=== PATIENT | female | born 2000 | race African-American/Black ===

== ENCOUNTER 2023-10-18 14:24 | Outpatient (CLI) | payer OTHER, SELFPAY ==
[2023-10-18 15:30] LABS: Influenza A QL RT-PCR Positive (Negative); Influenza B QL RT-PCR Negative (Negative); RSV RNA, RT-PCR Negative (Negative); SARS-CoV-2 RNA PCR Negative (Negative)
== END 2023-10-18 14:25 | disposition home or self-care (01) ==
LOC: ANHLAB 14:25
PROVIDERS: PCP Nurse Practitioner Family; Visit Provider Nurse Practitioner Family
DX: Z20.822 Contact with and (suspected) exposure to COVID-19 (principal)
CPT/HCPCS: 87637

== ENCOUNTER 2024-01-17 19:36 | Emergency (ER) | payer OTHER, SELFPAY ==
--- NOTE | ~2024-01-17 | XR_ITS ---
EXAMINATION: XR chest 2V Exam Date/Time: 01/17/2024 21:02 CDT HISTORY: shortness of breath and chest painx 1 day Comparison: None. RESULT: Lines, tubes, and devices: None. Lungs and pleura: Clear. Cardiomediastinal silhouette: Normal. Other: No acute osseous or upper abdominal finding. IMPRESSION: No acute cardiopulmonary process. Reviewed, dictated and finalized at location [facility].
--- NOTE | 2024-01-17 19:53 | ED.SOB ---
HPI - SOB/Dyspnea General Chief Complaint: Shortness of Breath/Dyspnea Stated Complaint: SOB Time Seen by Provider: 01/17/24 19:52 History of Present Illness HPI Narrative: Patient is a 23 year old female with no PMH here with chest pain and shortness of breath. She notes yesterday she began having some chest pain in her upper back. Pain seemed to get worse with deep breaths. She noted associated shortness of breath last night, took a dose of 800 mg ibuprofen and it seemed to resolve. Around 4 am she woke up and felt the pain again, took another dose of ibuprofen around 9 am but the pain persisted. She went in to an urgent care today who referred her into the ER for further testing. They did perform rapid COVID and strep testing at urgent care which were normal. 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 No prior history of PE, no OCP use, non smoker. She did take a car ride 3+ hours away this weekend. Denies calf pain or swelling. Related Data Home Medications Medication Instructions Recorded Confirmed No Home Medications 07/26/23 10/18/23 Allergies Allergy/AdvReac Type Severity Reaction Status Date / Time No Known Allergies Allergy Verified 07/26/23 09:04 Review of Systems Review of Systems: All systems reviewed & are unremarkable except as noted in HPI and below PMFSH Past Medical History Medical History (Updated 01/18/24 @ 00:00 by Jf Dastacia) Blood glucose elevated Fatigue Impacted cerumen of right ear Family History Family History (Updated 07/26/23 @ 09:09 by Christin Chong CMA) Father Hypertension Alcoholism Mother Hypertension Scleroderma Heart problem Grandparent Uterine cancer Social History Social History (Updated 07/26/23 @ 09:17 by Christin Chong CMA) Smoking status: Never smoker Second hand tobacco smoke exposure: No Alcohol intake: current Alcohol use details: wine 3 glasses per month Substance use: never Substance use type: does not use Living arrangements: with family Occupation/Education: student 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 HEAD: Normocephalic, atraumatic. EYES: PERRLA and EOMI. ENT: Nares clear. Mucous membranes moist. NECK: Supple. CHEST: Clear to auscultation. No respiratory distress. HEART: Tachycardic. Normal peripheral pulses. ABDOMEN: Soft, nontender, nondistended. EXTREMITIES: Normal range of motion. No edema. No calf tenderness SKIN: Warm, dry, no rash. NEURO: No focal deficits. Alert and oriented x3. PSYCH: Normal mood and affect. Course Course Emergency Course: Chart review performed. Patient here with shortness of breath. Last visit in our system on 10/18/23 for URI, was diagnosed with influenza at that time. Patient seen evaluated, nontoxic appearing and in no respiratory distress. She does appear to be febrile at 100.5F on arrival here. Tylenol ordered. Differentials include viral illness, pneumonia, given her recent travel and tachycardia with pleuritic chest pain unable to a rule out PE with PERC criteria, will do screening lab work including a screening D-dimer. Patient tolerating p.o. fluids, she can continue to use p.o. fluids here in the department. Lab work reviewed. No leukocytosis, UA negative for UTI, Troponin and BNP normal. Electrolytes normal. COVID, influenza, RSV negative. D-dimer negative. The results of pertinent diagnostic studies and exam findings were discussed. The patient?s provisional diagnosis and plan of care were discussed with the patient and present family. The patient and/or present family expressed understanding of the diagnosis and plan. The nurse was instructed to provide written instructions and appropriate follow-up information. The p
[2024-01-17 20:11] VITALS: BP 124/86; PULSE 100; RESP 16; TEMP 38.1; O2SAT 100
--- NOTE | 2024-01-17 20:15 | ECG_ITS ---
Test Date: 2024-01-17 20:21:35 Measurements Intervals [place] Rate: 93 P: 39 LA: 157 QRS: 34 QRSD: 80 T: 27 QT: 311 QTc: 387 Interpretive Statements SINUS RHYTHM EARLY PRECORDIAL R/S TRANSITION MINIMAL Q WAVES- HIGH LATERAL LEADS NONSPECIFIC T-WAVE ABNORMALITY- ANT/INF LEADS BASELINE ARTIFACT- I, II, III BORDERLINE ECG No previous ECG available for comparison Electronically Signed On 01-18-2024 06:25:48 CDT by Olu Garay D.O.
[2024-01-17 20:18] VITALS: PULSE 98
[2024-01-17 20:19] VITALS: O2SAT 100
[2024-01-17] MEDS: ACETAMINOPHEN 500 MG TABLET 1000 MG PO (20:22)
[2024-01-17 20:58] LABS: Influenza A QL RT-PCR Negative (Negative); Influenza B QL RT-PCR Negative (Negative); RSV RNA, RT-PCR Negative (Negative); SARS-CoV-2 RNA PCR Negative (Negative)
[2024-01-17 21:03] LABS: Basophils Percent Auto 0.3 % (0.2-1.2); Eosinophils Percent Auto 0.8 % (0-4.4); Hemoglobin 11.7 g/dL (12.0-15.0); Immature Granulocyte Absolute 0.01 K/mm3 (0.00-0.031); Immature Granulocyte Percent A 0.3 % (0-0.5); Lymphocytes Absolute Auto 1.11 K/mm3 (0.9-3.2); Lymphocytes Percent Auto 30.1 % (18.3-44.2); Mean Corpuscular HGB Conc 33.4 g/dl (32-36); Mean Corpuscular Hemoglobin 30.9 pg (26-34); Mean Corpuscular Volume 92.3 fl (80-100); Mean Platelet Volume 9.7 fl (7.4-10.4); Monocytes Absolute Auto 0.3 K/mm3 (0.1-0.6); Monocytes Percent Auto 9.2 % (2.6-8.5); Neutrophils Absolute Auto 2.2 K/mm3 (1.3-6.7); Neutrophils Percent Auto 59.3 % (45.5-73.1); Platelet Count Result 166 k/mm3 (150-375); Red Blood Count 3.79 M/mm3 (4.2-5.4); Red Cell Distribution Width 12.3 % (11.5-14.5); White Blood Count 3.7 K/mm3 (4.5-10.0)
[2024-01-17 21:04] LABS: Appearance Urine Clear (Clear); Bilirubin Urine Negative (Negative); Blood Urine Negative (Negative); Color Urine Yellow (Yellow); Glucose Urine UA Negative (Negative); Ketones Urine Negative (Negative); Leukocyte Esterase Ur Negative LEU/UL (Negative); Nitrate Urine Negative (Negative); Protein Urine Negative (Negative); Specific Grav Ur 1.013 (1.001-1.035); pH Urine 7.5 (5.0-9.0)
[2024-01-17 21:14] LABS: Alanine Aminotransferase 12 U/L (6-35); Albumin Level 4.4 g/dL (3.5-5.1); Alkaline Phosphatase 84 U/L (38-126); Anion Gap 7 mmol/L (4-12); Aspartate Amino Transferase 16 U/L (14-36); Bilirubin,Total 0.3 mg/dL (0.2-1.3); Blood Urea Nitrogen 9 mg/dL (7-17); Calcium 8.6 mg/dL (8.4-10.2); Carbon Dioxide 26 mmol/L (22-30); Chloride 105 mmol/L (98-107); Estimated CRCL calculation 105 ml/min; Estimated Glomerular Filt Rate > 60; Glucose 106 mg/dL (65-110); Potassium 3.8 mmol/L (3.4-5.0); Sodium 138 mmol/L (137-145)
[2024-01-17 21:16] LABS: Add Urine Microscopic? NO
[2024-01-17 21:27] LABS: NT Pro B Type Natriuretic Pept < 20 pg/mL (19.9-100); Troponin I < 0.012 ng/mL (0.000-0.034)
[2024-01-17 21:37] LABS: D Dimer 0.28 ug/mL (<0.48)
== END 2024-01-17 22:50 | disposition home or self-care (01) ==
PROVIDERS: Emergency Provider Student in an Organized Health Care Education/Training Program; PCP Nurse Practitioner Family
DX: J06.9 Acute upper respiratory infection, unspecified (principal); M54.9 Dorsalgia, unspecified; Z20.822 Contact with and (suspected) exposure to COVID-19
CPT/HCPCS: 36415; 71046; 80053; 81003; 81025; 83880; 84484; 85025; 85380; 87637; 93005; 99284; A9270

== ENCOUNTER 2024-06-18 14:04 | Outpatient (CLI) | payer OTHER, SELFPAY ==
--- NOTE | ~2024-06-18 | US_ITS ---
Pelvic ultrasound. Clinical History: First trimester , establish dates and viability, amenorrhea Technique: Realtime transabdominal and transvaginal scanning of the pelvis was performed. Color flow Doppler and Doppler spectral analysis were performed. Findings: The uterus is anteverted, and contains an intrauterine gestational sac. heart rate is 180 bpm. [place]-rump length of 2.2 cm corresponds to an estimated gestational age of 9 weeks 0 days.. The right ovary measures 2.9 x 3.4 x 1.5 cm. No significant right ovarian or adnexal mass is seen. The left ovary is not well visualized. No significant left ovarian or adnexal mass is seen. There is no evidence of free fluid in the cul de sac. Impression: Live intrauterine gestation, with estimated gestational age of 9 weeks 0 days. heart rate is 18 0 bpm. 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 heart rate is 180 bpm.
== END 2024-06-18 14:05 | disposition home or self-care (01) ==
PROVIDERS: PCP Nurse Practitioner Family; Visit Provider Nurse Practitioner Obstetrics & Gynecology
DX: N91.2 Amenorrhea, unspecified (principal)
CPT/HCPCS: 76801; 76817